=== PATIENT | male | born 1985 | race African-American/Black ===

== ENCOUNTER 2019-09-04 03:11 | Emergency (ER) | payer OTHER ==
[~2019-09-04] VITALS: Ht 180.3 cm; Wt 78.0 kg
[~2019-09-04 03:11] MED LIST: DIAZ5TAB PO; MELO7.5T31 PO; METH500T7 PO; METH750T87 PO; OXYC-307 PO; OXYC5CAP2 PO
[2019-09-04] MEDS ORDERED: DEXAMETHASONE 4 MG TABLET ONE (03:47)
[2019-09-04] MEDS ORDERED: CLINDAMYCIN 300 MG CAPSULE ONE (03:47)
[2019-09-04] MEDS ORDERED: HYDROcodone/APAP 5/325 TABLET ONE (03:48)
[2019-09-04] MEDS ORDERED: LIDOCAINE-MPF 1%, 2ML ONE (03:51)
--- NOTE | 2019-09-04 03:57 | NUR ---
MEDS PER MAR, TOLERATED WELL. WEIGHT GUESSER AT BS.
[2019-09-04] MEDS ORDERED: HYDROcodone/APAP 5/325 TABLET PO ONE (04:00)
[2019-09-04] MEDS ORDERED: DEXAMETHASONE 4 MG TABLET PO ONE (04:00)
[2019-09-04] MEDS ORDERED: LIDOCAINE 4% TOPICAL SOLUTION 50 ML TP ONE (04:00)
[2019-09-04] MEDS ORDERED: CLINDAMYCIN 300 MG CAPSULE PO ONE (04:00)
[2019-09-04] MEDS ORDERED: BENZOCAINE AEROSOL SPRAY 20%, 60ML TP ONE (05:00)
[2019-09-04] MEDS ORDERED: BENZOCAINE AEROSOL SPRAY 20%, 60ML ONE (05:07)
[2019-09-04] MEDS ORDERED: LIDOCAINE-MPF 1%, 5ML ONE (05:08)
--- NOTE | 2019-09-04 05:26 | NUR ---
AT TO DRAIN ABSCESS
[2019-09-04 05:57] VITALS: BP 132/62
== END 2019-09-04 06:00 | disposition home or self-care (01) ==
LOC: ED 04:55
DX: J02.0 Streptococcal pharyngitis (principal); F17.200 Nicotine dependence, unspecified, uncomplicated
CPT/HCPCS: 87880; 94640; 99284